=== PATIENT | female | born 1985 | race Caucasian/White ===

== ENCOUNTER 2020-11-06 13:37 | Emergency (ER) | payer OTHER, SELFPAY ==
[2020-11-06 13:45] VITALS: BP 105/66; PULSE 70; RESP 16; TEMP 37; O2SAT 100
--- NOTE | 2020-11-06 13:58 | ED.URI ---
HPI - URI/Sore Throat General Chief Complaint: Upper Respiratory Infection Stated Complaint: sinus not feeling well Time Seen by Provider: 11/06/20 13:45 Source: patient Mode of arrival: ambulatory Limitations: no limitations History of Present Illness HPI Narrative: 35-year-old female presents to [facility] with complaints of sore throat, generalized fatigue. Patient states that she is concerned because she had exposure to influenza A and would like a test. States she is very concerned because her 8-month-old baby had a low-grade fever last night. Related Data Home Medications Medication Instructions Recorded Confirmed levothyroxine 75 mcg PO DAILY 11/06/20 11/06/20 metformin 500 mg PO DAILY 11/06/20 11/06/20 spironolactone 25 mg PO DAILY 11/06/20 11/06/20 Allergies Allergy/AdvReac Type Severity Reaction Status Date / Time No Known Allergies Allergy Verified 11/06/20 14:00 Review of Systems Review of Systems: Narrative: CONSTITUTIONAL: Denies fever, chills, or sweats. EYES: Denies visual changes, redness, or discharge. ENT: Reports rhinorrhea, congestion, sore throat. CARDIOVASCULAR: Denies chest pain, palpitations, or edema. RESPIRATORY: Denies cough or dyspnea. GASTROINTESTINAL: Denies abdominal pain, nausea, vomiting, or diarrhea. GENITOURINARY: Denies dysuria or hematuria. SKIN: Denies rash or itching. MUSCULOSKELETAL: Denies back pain, joint pain, or myalgia. NEUROLOGIC: Denies headache, numbness, or weakness. PSYCHIATRIC: Denies anxiety or depression. All other systems reviewed are negative, except as documented in HPI. [facility] Past Medical History Medical History Hypothyroidism PCOS (polycystic ovarian syndrome) Comments At the time of my signature, I reviewed and agree with the nursing past medical, surgical, social, and family history. There is no relevant family history pertinent to the patient complaint. Exam Narrative: Exam Narrative: GENERAL: This is a well-nourished, well-developed patient, in no apparent distress. HEAD: normocephalic, atraumatic. EYES: PERRL. Sclera clear/white. Vision is grossly intact. EARS: External ears normal, auditory canals clear and without drainage, TMs normal without perforation. Hearing grossly intact. NOSE: External nose normal with no obvious nasal discharge, nares without redness, no rhinorrhea. THROAT: Mucous membranes moist, posterior pharynx clear. NECK: Neck supple, non-tender without lymphadenopathy, masses or thyromegaly. CARDIOVASCULAR: Regular rate and rhythm without murmurs, gallops, or rubs. RESPIRATORY: Clear to auscultation. Breath sounds equal bilaterally. No wheezes, rales, or rhonchi. GASTROINTESTINAL: Abdomen soft, non-tender, nondistended. NEURO: awake, alert, and oriented to person, place and time. There were no obvious focal neurologic abnormalities. EXTREMITIES: No joint tenderness, effusion, or edema noted. BACK: Nontender without deformity. Course Course Emergency Course: Discussed results with patient. Patient now states that she gets similar symptoms to when the weather changes rapidly and her seasonal allergies. Discussed treatment plan. Vital Signs Vital signs: Vital Signs Temperature 98.6 F 11/06/20 13:45 Pulse Rate 70 11/06/20 13:45 Respiratory Rate 16 11/06/20 13:45 Blood Pressure 105/66 11/06/20 13:45 Pulse Oximetry 100 11/06/20 13:45 Temperature 98.6 F 11/06/20 13:45 Pulse Rate 70 11/06/20 13:45 Respiratory Rate 16 11/06/20 13:45 Blood Pressure 105/66 11/06/20 13:45 Pulse Oximetry 100 11/06/20 13:45 MDM - URI/Sore Throat MDM Narrative Medical decision making narrative: Discharge instructions reviewed with patient, as well as provided in writing per nursing staff. The instructions also include specific and strict return/GO TO THE ER as well as f/u information. All questions have been answered, and the patient deny any further questions w
[2020-11-07 20:31] LABS: SARS-CoV-2 RNA PCR Negative
== END 2020-11-06 14:20 | disposition home or self-care (01) ==
PROVIDERS: Emergency Provider Nurse Practitioner; PCP Internal Medicine
DX: B34.9 Viral infection, unspecified (principal); Z20.822 Contact with and (suspected) exposure to COVID-19; E03.9 Hypothyroidism, unspecified; E28.2 Polycystic ovarian syndrome
CPT/HCPCS: 87081; 87804; 87880; 99213; C9803; G0463; U0003; U0005